=== PATIENT | male | born 1955 | race Caucasian/White ===

== ENCOUNTER 2023-11-03 10:25 | Outpatient (CLI) | payer OTHER | END 2023-11-03 10:26 | disposition home or self-care (01) | LOC: CSHMRI 10:25 | PROVIDERS: ATTEND Family Medicine | DX: M47.27 Other spondylosis with radiculopathy, lumbosacral region (principal); M48.07 Spinal stenosis, lumbosacral region; M25.78 Osteophyte, vertebrae | CPT/HCPCS: 72148 ==